=== PATIENT | male | born 1985 | race Caucasian/White ===

== ENCOUNTER 2020-12-04 10:33 | Emergency (ER) | payer OTHER ==
[2020-12-04 11:48] LABS: ALBUMIN 4.3 g/dL (3.4-5.0); BASOPHIL 1.3 % (0-2); BILIRUBIN - TOTAL 0.7 mg/dL (0.2-1.0); BUN/CREAT RATIO (CALC) 16.5 RATIO; CREATININE 0.79 mg/dL (0.67-1.17); EOSINOPHIL 2.6 % (0-5); GLOBULIN (CALCULATION) 3.3 g/dL; HCT 43.4 % (42.0-52.0); HGB 15.5 g/dl (13.2-18.0); LYMPHOCYTE 31.5 % (15-48); MCH 29.9 pg (25.0-31.0); MCHC 35.7 g/dL (32.0-36.0); MCV 83.6 fL (78.0-100.0); MONOCYTE 6.4 % (0-12); MPV 9.9 fL (6.0-9.5); NEUTROPHIL 57.8 % (41-80); NRBC 0; PLT 272 K/uL (150-400); RBC 5.19 M/uL (4.70-6.00); RDW 12.5 % (11.5-14.0); TOTAL PROTEIN 7.6 g/dL (6.4-8.2); WBC 7.7 K/uL (4.0-10.5)
[2020-12-04 11:52] LABS: BILIRUBIN NEGATIVE (NEGATIVE); BLOOD NEGATIVE Ery/uL (NEGATIVE); CLARITY CLEAR (CLEAR); COLOR YELLOW (YELLOW); GLUCOSE (U) NORMAL (NORMAL); LEUKOCYTES NEGATIVE Leu/uL (NEGATIVE); NITRITE NEGATIVE (NEGATIVE); PROTEIN NEGATIVE (NEGATIVE); SPECIFIC GRAVITY 1.015 (1.001-1.030); UROBILINOGEN 0.2 mg/dL (0.2-1.0)
[2020-12-04] MEDS ORDERED: CLOTRIMAZOLE TOP (12:15)
== END 2020-12-04 12:21 | disposition home or self-care (01) ==
LOC: FER 10:33
PROVIDERS: Emergency Medicine
DX: L03.316 Cellulitis of umbilicus (principal); Z88.1 Allergy status to other antibiotic agents
CPT/HCPCS: 36415; 80053; 81003; 82150; 83690; 85025; 99284